=== PATIENT | male | born 1970 | race Caucasian/White ===

== ENCOUNTER 2025-01-11 02:00 | Inpatient (IN) | payer OTHER ==
[2025-01-11 02:09] VITALS: BMI 26.2
[2025-01-11] MEDS ORDERED: POLYETHYLENE GLYCOL (HEALTHYLAX) 3350 17 GM PACKET PO PRN (03:06)
[2025-01-11] MEDS ORDERED: IBUPROFEN 400 MG TABLET (FP) PO PRN (03:06)
[2025-01-11] MEDS ORDERED: ACETAMINOPHEN 325 MG TABLET (FP) PO PRN (03:06)
[2025-01-11] MEDS ORDERED: BENZONATATE 200 MG CAPSULE PO PRN (03:06)
[2025-01-11] MEDS ORDERED: guaiFENesin 600 MG TABLET.ER (FP) PO PRN (03:06)
[2025-01-11] MEDS ORDERED: MAGNESIUM HYDROX 2400MG/30ML ORAL SUSPENSION 30 ML CUP PO PRN (03:06)
[2025-01-11] MEDS ORDERED: NALOXONE (NARCAN) HCL 4 MG/0.1 ML SPRAY NS PRN (03:06)
[2025-01-11] MEDS ORDERED: P-EPHED 60MG/TRIPROLIDI 2.5MG TABLET PO PRN (03:06)
[2025-01-11] MEDS ORDERED: hydrOXYzine PAMOATE 25 MG CAPSULE (FP) PO PRN (03:06)
[2025-01-11] MEDS ORDERED: BENZOCAINE/MENTHOL (CHLORASEPTIC ) LOZENGE MM PRN (03:06)
[2025-01-11] MEDS: PRENATAL VITAMINS W/ FOLIC ACID TABLET (FP) PO SCH (10:04)
[2025-01-11] MEDS: NICOTINE 14 MG/24 HOURS TOPICAL PATCH TD SCH (10:05)
[2025-01-11] MEDS: TUBERCULIN PPD 5 TU/0.1ML SYRINGE (IN PATIENT USE ONLY) ID ONE (10:06)
[2025-01-11 11:30] LABS: MCHC 31.1 g/dl (32.3-36.5); MEAN CELL VOLUME 87.8 fl (79.0-92.2); MEAN PLT VOLUME 9.6 fl (9.4-12.4); RDW 13.4 % (12.2-16.1)
[2025-01-11 11:48] LABS: CO2 32 mmol/L (21-32); GLUCOSE,RANDOM 156 mg/dL (74-106)
[2025-01-11 11:49] LABS: SGPT/ALT 15 U/L (13-61)
[2025-01-11 11:50] LABS: SGOT/AST 17 U/L (15-37)
[2025-01-11 11:51] LABS: CREATININE 0.6 mg/dL (0.55-1.3); TOT PROT 6.6 g/dl (6.4-8.2)
[2025-01-11 11:52] LABS: ALK PHOS 93 U/L (45-117)
[2025-01-11] MEDS: DEXTROAMPHETAMINE/AMPHETAMINE 20 MG CAP.ER.24H PO SCH (12:07)
[2025-01-11 12:08] LABS: SYPHILIS W/ RPR CONF NON-REACTIVE (NONREACTIVE)
[2025-01-11 12:44] LABS: HCV DIAGNOSTIC IN-HOUSE W/RFLX REACTIVE (NONREACTIVE)
[2025-01-11] MEDS: VENLAFAXINE HCL 150 MG E.R. CAPSULE PO SCH (12:47)
[2025-01-11] MEDS: MELATONIN 5 MG TABLETS PO SCH (21:16)
[2025-01-11] MEDS: THIAMINE 100 MG TABLET PO SCH (21:16)
[2025-01-11] MEDS: NICOTINE POLACRILEX 2 MG GUM BUC PRN (22:45)
[2025-01-12] MEDS: MAG HYDROX/AL HYDROX/SIMETH 30 ML UNIT-DOSE CUP PO PRN (00:48)
[2025-01-12 02:37] LABS: URINE APPEARANCE CLEAR; URINE BILIRUBIN NEGATIVE (NEGATIVE); URINE COLOR YELLOW; URINE GLUCOSE (UA) NEGATIVE (NEGATIVE); URINE KETONE NEGATIVE (NEGATIVE); URINE LEUK ESTERASE NEGATIVE (NEGATIVE); URINE NITRITE NEGATIVE (NEGATIVE); URINE PROTEIN NEGATIVE (NEGATIVE); URINE UROBILINOGEN 1.0 mg/dL (0.2-1.0)
[2025-01-12] MEDS ORDERED: MAG HYDROX/AL HYDROX/SIMETH 30 ML UNIT-DOSE CUP PO PRN (08:17)
[2025-01-12] MEDS: IBUPROFEN 600 MG TABLET (FP) PO PRN (11:06)
[2025-01-12] MEDS ORDERED: LACTULOSE 20 GM/30 ML UDC (FOR ORAL USE ONLY) PO PRN (11:41)
[2025-01-12] MEDS: FAMOTIDINE 20 MG TABLET PO SCH (13:00)
[2025-01-12] MEDS: DOCUSATE SODIUM 100 MG CAPSULE (FP) PO SCH (21:03)
[2025-01-13] MEDS: LIDOCAINE 5% TOPICAL PATCH TP PRN (16:22)
[2025-01-13] MEDS: TRIMETHOBENZAMIDE HCL 200MG/2ML INJ IM ONE (22:32)
[2025-01-13] MEDS: LIDOCAINE PATCH REMOVAL MC SCH (23:57)
[2025-01-14] MEDS: LOPERAMIDE HCL 2 MG CAPSULE PO PRN (06:27)
[2025-01-15] MEDS: SIMETHICONE 80 MG TAB.CHEW (FP) PO PRN (09:32)
[2025-01-16 06:38] VITALS: RESP 18; TEMP 97.5
[2025-01-16] MEDS: SODIUM PHOSPHATE/NA BIPHOS 133 ML ENEMA RC ONE (17:52)
[2025-01-17 09:27] VITALS: BP 125/82; PULSE 76
== END 2025-01-17 13:28 | disposition home or self-care (01) | DRG 772 ==
LOC: EDBD 02:00 → YASAS 02:00 → Y3E 08:57
PROVIDERS: ADMIT Psychiatry & Neurology Pain Medicine; ATTEND Psychiatry & Neurology Pain Medicine
PROC: HZ42ZZZ Group Counseling for Substance Abuse Treatment, Cognitive-Behavioral (ICD-10-PCS; principal; 2025-01-11)
DX: F11.20 Opioid dependence, uncomplicated (principal); F10.20 Alcohol dependence, uncomplicated; F12.20 Cannabis dependence, uncomplicated; F14.20 Cocaine dependence, uncomplicated; K21.9 Gastro-esophageal reflux disease without esophagitis; K59.00 Constipation, unspecified; F17.210 Nicotine dependence, cigarettes, uncomplicated; M54.50 Low back pain, unspecified
CPT/HCPCS: 36415; 71046-TC-FY; 80053; 80305; 80307; 81003; 82962; 85027; 86780; 86803; 87522; 87811; 93005; 93010

== ENCOUNTER 2025-01-18 11:36 | Inpatient (IN) | payer OTHER ==
[2025-01-18 12:20] VITALS: BMI 21.7
[2025-01-18] MEDS ORDERED: NICOTINE POLACRILEX 2 MG GUM BUC PRN (12:27)
[2025-01-18] MEDS ORDERED: guaiFENesin 600 MG TABLET.ER (FP) PO PRN (12:27)
[2025-01-18] MEDS ORDERED: LOPERAMIDE HCL 2 MG CAPSULE PO PRN (12:27)
[2025-01-18] MEDS ORDERED: NALOXONE HCL 0.4 MG/ML VIAL IVPUSH PRN (12:27)
[2025-01-18] MEDS ORDERED: POLYETHYLENE GLYCOL (HEALTHYLAX) 3350 17 GM PACKET PO PRN (12:27)
[2025-01-18] MEDS ORDERED: P-EPHED 60MG/TRIPROLIDI 2.5MG TABLET PO PRN (12:27)
[2025-01-18] MEDS ORDERED: BENZOCAINE/MENTHOL (CHLORASEPTIC ) LOZENGE MM PRN (12:27)
[2025-01-18] MEDS ORDERED: NALOXONE (NARCAN) HCL 4 MG/0.1 ML SPRAY NS PRN (12:27)
[2025-01-18] MEDS ORDERED: BENZONATATE 200 MG CAPSULE PO PRN (12:27)
[2025-01-18] MEDS: MELATONIN 5 MG TABLETS PO SCH (22:18)
[2025-01-18] MEDS: THIAMINE 100 MG TABLET PO SCH (22:19)
[2025-01-19] MEDS: METHOCARBAMOL 500 MG TABLET PO PRN (09:11)
[2025-01-19] MEDS: PRENATAL VITAMINS W/ FOLIC ACID TABLET (FP) PO SCH (09:12)
[2025-01-20] MEDS: DEXTROAMPHETAMINE/AMPHETAMINE 20 MG CAP.ER.24H PO SCH (05:18)
[2025-01-20] MEDS: VENLAFAXINE HCL 150 MG E.R. CAPSULE PO SCH (10:15)
[2025-01-21] MEDS: NICOTINE POLACRILEX 2 MG LOZENGE BC PRN (09:49)
[2025-01-21] MEDS: NICOTINE 14 MG/24 HOURS TOPICAL PATCH TD SCH (12:47)
[2025-01-22] MEDS: IBUPROFEN 600 MG TABLET (FP) PO PRN (03:39)
[2025-01-22] MEDS: MAG HYDROX/AL HYDROX/SIMETH 30 ML UNIT-DOSE CUP PO PRN (14:16)
[2025-01-22] MEDS: ONDANSETRON *ODT* 4 MG TABLET SL PRN (14:27)
[2025-01-23] MEDS: MAGNESIUM HYDROX 2400MG/30ML ORAL SUSPENSION 30 ML CUP PO PRN (05:32)
[2025-01-26] MEDS: DEXTROAMPHETAMINE/AMPHETAMINE 20 MG CAP.ER.24H PO SCH (05:27)
[2025-01-26] MEDS: IBUPROFEN 400 MG TABLET (FP) PO PRN (05:29)
[2025-01-26] MEDS ORDERED: FAMOTIDINE 20 MG TABLET PO PRN (10:42)
[2025-01-26] MEDS ORDERED: DOCUSATE SODIUM 100 MG CAPSULE (FP) PO PRN (10:47)
[2025-01-26] MEDS ORDERED: SIMETHICONE 80 MG TAB.CHEW (FP) PO PRN (10:47)
[2025-01-26] MEDS ORDERED: LACTULOSE 20 GM/30 ML UDC (FOR ORAL USE ONLY) PO PRN (10:48)
[2025-01-26 11:46] VITALS: BP 115/87; PULSE 72; RESP 18; TEMP 97.6
[2025-01-26] MEDS: LIDOCAINE PATCH REMOVAL MC SCH (23:08)
[2025-01-27] MEDS ORDERED: LIDOCAINE 5% TOPICAL PATCH TP SCH (10:00)
== END 2025-01-26 23:42 | disposition short-term general hospital (02) | DRG 772 ==
LOC: YASAS 11:36 → Y3NR 15:03 → Y3W 01-19 09:39
PROVIDERS: ADMIT Neuromusculoskeletal Medicine & OMM; ATTEND Psychiatry & Neurology Pain Medicine
PROC: HZ42ZZZ Group Counseling for Substance Abuse Treatment, Cognitive-Behavioral (ICD-10-PCS; principal; 2025-01-18)
DX: F10.20 Alcohol dependence, uncomplicated (principal); F14.20 Cocaine dependence, uncomplicated; F11.20 Opioid dependence, uncomplicated; F17.210 Nicotine dependence, cigarettes, uncomplicated; F31.9 Bipolar disorder, unspecified; F43.10 Post-traumatic stress disorder, unspecified; F90.9 Attention-deficit hyperactivity disorder, unspecified type; K21.9 Gastro-esophageal reflux disease without esophagitis; R10.11 Right upper quadrant pain
CPT/HCPCS: 80305; 80307; 82962; 87811; Q0162

== ENCOUNTER 2025-01-30 00:50 | Inpatient (IN) | payer OTHER ==
[2025-01-30 01:56] LABS: ABSOLUTE IMMATURE GRANULOCYTES 0.08 x10^3/uL (0.0-0.031); BASOPHILS # 0.02 x10^3/uL (0.01-0.08); EOSINOPHIL % 1.8 % (0.8-7.0); EOSINOPHILS # 0.16 x10^3/uL (0.04-0.54); MCHC 31.5 g/dl (32.3-36.5); MEAN CELL VOLUME 83.0 fl (79.0-92.2); MEAN PLT VOLUME 8.8 fl (9.4-12.4); MONOCYTE # 0.85 x10^3/uL (0.30-0.82); MONOCYTE % 9.5 % (5.3-12.2); RDW 14.0 % (12.2-16.1)
[2025-01-30] MEDS ORDERED: ACETAMINOPHEN 1000 MG/100 ML BAG IVPB PRN (02:24)
[2025-01-30] MEDS ORDERED: PIPERACILLIN/TAZOB 3.375 GM 3.375 GM in DEXTROSE 5%-WATER - 50 ML IVPB SCH ×2 (02:30→03:00)
[2025-01-30 02:32] LABS: CO2 30.0 mmol/L (21-32); GLUCOSE,RANDOM 131.0 mg/dL (74-106)
[2025-01-30 02:35] LABS: CREATININE 0.7 mg/dL (0.55-1.3); SGOT/AST 31.0 U/L (15-37); SGPT/ALT 23.0 U/L (13-61)
[2025-01-30 02:37] LABS: TOT PROT 7.0 g/dl (6.4-8.2)
[2025-01-30 02:38] LABS: ALK PHOS 147.0 U/L (45-117)
[2025-01-30] MEDS: PIPERACILLIN/TAZOB 3.375 GM 3.375 GM in DEXTROSE 5%-WATER - 50 ML IVPB SCH ×2 (04:07→17:27)
[2025-01-30 04:43] VITALS: BMI 21.9
[2025-01-30 06:58] LABS: URINE BARBITURATES NEGATIVE (NEGATIVE)
[2025-01-30 06:59] LABS: OPIATES, URI NEGATIVE (NEGATIVE); PHENCYCLIDINE,URINE NEGATIVE (NEGATIVE); URINE BENZODIAZEPINES NEGATIVE (NEGATIVE)
[2025-01-30 07:00] LABS: COCAINE, UR POSITIVE (NEGATIVE); METHADONE, UR POSITIVE (NEGATIVE); URINE AMPHETAMINES POSITIVE (NEGATIVE)
[2025-01-30 08:04] LABS: URINE APPEARANCE CLEAR; URINE BILIRUBIN NEGATIVE (NEGATIVE); URINE COLOR YELLOW; URINE GLUCOSE (UA) NEGATIVE (NEGATIVE); URINE KETONE NEGATIVE (NEGATIVE); URINE LEUK ESTERASE NEGATIVE (NEGATIVE); URINE NITRITE NEGATIVE (NEGATIVE); URINE PROTEIN NEGATIVE (NEGATIVE); URINE UROBILINOGEN 1.0 mg/dL (0.2-1.0)
[2025-01-30 09:18] LABS: ABSOLUTE IMMATURE GRANULOCYTES 0.06 x10^3/uL (0.0-0.031); BASOPHILS # 0.01 x10^3/uL (0.01-0.08); EOSINOPHIL % 2.1 % (0.8-7.0); EOSINOPHILS # 0.17 x10^3/uL (0.04-0.54); MCHC 31.3 g/dl (32.3-36.5); MEAN CELL VOLUME 82.7 fl (79.0-92.2); MEAN PLT VOLUME 8.8 fl (9.4-12.4); MONOCYTE # 0.93 x10^3/uL (0.30-0.82); MONOCYTE % 11.7 % (5.3-12.2); RDW 13.9 % (12.2-16.1)
[2025-01-30 09:24] LABS: INR 1.2 (0.83-1.09); PROTHROMBIN TIME (PATIENT) 13.2 SEC (9.7-13.0)
[2025-01-30] MEDS: VENLAFAXINE HCL 75 MG E.R. CAPSULES PO SCH (09:25)
[2025-01-30] MEDS: FOLIC ACID 1 MG TABLET (FP) PO SCH (09:26)
[2025-01-30] MEDS: FAMOTIDINE 20 MG TABLET PO SCH (09:26)
[2025-01-30 09:58] LABS: CO2 31.0 mmol/L (21-32)
[2025-01-30 09:59] LABS: GLUCOSE,RANDOM 94.0 mg/dL (74-106)
[2025-01-30 10:00] LABS: SGPT/ALT 20.0 U/L (13-61)
[2025-01-30] MEDS ORDERED: VENLAFAXINE HCL 150 MG E.R. CAPSULE PO SCH (10:00)
[2025-01-30 10:02] LABS: CREATININE 0.6 mg/dL (0.55-1.3); SGOT/AST 20.0 U/L (15-37)
[2025-01-30 10:03] LABS: TOT PROT 6.6 g/dl (6.4-8.2)
[2025-01-30 10:04] LABS: ALK PHOS 142.0 U/L (45-117)
[2025-01-30] MEDS: BICTEGRAV/EMTRICIT/TENOFOV (BIKTARVY) 50-200-25 MG TABLET PO SCH (10:30)
[2025-01-30] MEDS: DEXTROAMPHETAMINE/AMPHETAMINE 10 MG CAP.ER.24H PO SCH ×2 (11:17→17:21)
[2025-01-31] MEDS: BICTEGRAV/EMTRICIT/TENOFOV (BIKTARVY) 50-200-25 MG TABLET PO SCH (09:02)
[2025-01-31 09:22] LABS: MCHC 30.5 g/dl (32.3-36.5); MEAN CELL VOLUME 84.7 fl (79.0-92.2); MEAN PLT VOLUME 8.5 fl (9.4-12.4); RDW 13.9 % (12.2-16.1)
[2025-01-31 09:23] LABS: INR 1.2 (0.83-1.09); PROTHROMBIN TIME (PATIENT) 13.1 SEC (9.7-13.0)
[2025-01-31 10:11] LABS: CO2 30.0 mmol/L (21-32); GLUCOSE,RANDOM 76.0 mg/dL (74-106)
[2025-01-31 10:14] LABS: CREATININE 0.5 mg/dL (0.55-1.3); SGOT/AST 14.0 U/L (15-37); SGPT/ALT 22.0 U/L (13-61)
[2025-01-31 10:16] LABS: TOT PROT 7.3 g/dl (6.4-8.2)
[2025-01-31 10:17] LABS: ALK PHOS 140.0 U/L (45-117)
[2025-01-31] MEDS: ENOXAPARIN NA (PORCINE) 40 MG/0.4 ML DISP.SYRIN SQ SCH (20:43)
[2025-02-01 09:08] LABS: INR 1.21 (0.83-1.09); PROTHROMBIN TIME (PATIENT) 13.3 SEC (9.7-13.0)
[2025-02-01 09:10] LABS: ABSOLUTE IMMATURE GRANULOCYTES 0.07 x10^3/uL (0.0-0.031); BASOPHILS # 0.01 x10^3/uL (0.01-0.08); EOSINOPHIL % 3.0 % (0.8-7.0); EOSINOPHILS # 0.17 x10^3/uL (0.04-0.54); MCHC 30.3 g/dl (32.3-36.5); MEAN CELL VOLUME 85.5 fl (79.0-92.2); MEAN PLT VOLUME 9.3 fl (9.4-12.4); MONOCYTE # 0.64 x10^3/uL (0.30-0.82); MONOCYTE % 11.2 % (5.3-12.2); RDW 14.0 % (12.2-16.1)
[2025-02-01 10:13] LABS: CO2 31.0 mmol/L (21-32); GLUCOSE,RANDOM 118.0 mg/dL (74-106)
[2025-02-01 10:15] LABS: SGOT/AST 14.0 U/L (15-37); SGPT/ALT 19.0 U/L (13-61)
[2025-02-01 10:16] LABS: CREATININE 0.6 mg/dL (0.55-1.3)
[2025-02-01 10:17] LABS: TOT PROT 6.6 g/dl (6.4-8.2)
[2025-02-01 10:18] LABS: ALK PHOS 126.0 U/L (45-117)
[2025-02-01] MEDS: POLYETHYLENE GLYCOL (HEALTHYLAX) 3350 17 GM PACKET PO SCH (12:50)
[2025-02-01] MEDS ORDERED: NICOTINE 7 MG/24 HOURS TOPICAL PATCH TD SCH (16:30)
[2025-02-01] MEDS: NICOTINE 7 MG/24 HOURS TOPICAL PATCH TD ONE (16:43)
[2025-02-01] MEDS ORDERED: ACETAMINOPHEN 325 MG TABLET (FP) PO PRN ×2 (17:52→17:53)
[2025-02-01] MEDS: ACETAMINOPHEN 500 MG TABLET (FP) PO PRN (18:49)
[2025-02-01] MEDS: TRIMETHOBENZAMIDE HCL 200MG/2ML INJ IM ONE (22:22)
[2025-02-02] MEDS: AMOX TR/POT CLAV 875MG/125MG TABLETS (FP) PO SCH (08:30)
[2025-02-02 09:02] LABS: ABSOLUTE IMMATURE GRANULOCYTES 0.11 x10^3/uL (0.0-0.031); BASOPHILS # 0.01 x10^3/uL (0.01-0.08); EOSINOPHIL % 2.1 % (0.8-7.0); EOSINOPHILS # 0.16 x10^3/uL (0.04-0.54); MCHC 30.2 g/dl (32.3-36.5); MEAN CELL VOLUME 85.4 fl (79.0-92.2); MEAN PLT VOLUME 8.9 fl (9.4-12.4); MONOCYTE # 0.67 x10^3/uL (0.30-0.82); MONOCYTE % 8.9 % (5.3-12.2); RDW 14.1 % (12.2-16.1)
[2025-02-02 09:14] LABS: INR 1.14 (0.83-1.09); PROTHROMBIN TIME (PATIENT) 12.4 SEC (9.7-13.0)
[2025-02-02 10:09] LABS: CO2 32.0 mmol/L (21-32); GLUCOSE,RANDOM 112.0 mg/dL (74-106)
[2025-02-02 10:11] LABS: SGOT/AST 21.0 U/L (15-37)
[2025-02-02 10:12] LABS: SGPT/ALT 25.0 U/L (13-61)
[2025-02-02 10:13] LABS: CREATININE 0.6 mg/dL (0.55-1.3); TOT PROT 6.9 g/dl (6.4-8.2)
[2025-02-02 10:15] LABS: ALK PHOS 129.0 U/L (45-117)
[2025-02-02] MEDS: PEG 3350/NA SULF BICARB CL/KCL 4000 ML SOLN.RECON PO ONE (12:29)
[2025-02-02] MEDS: NICOTINE 14 MG/24 HOURS TOPICAL PATCH TD SCH (12:30)
[2025-02-02] MEDS: BISACODYL 5 MG TABLET.DR (FP) PO ONE (21:17)
[2025-02-03 09:54] LABS: ABSOLUTE IMMATURE GRANULOCYTES 0.05 x10^3/uL (0.0-0.031); BASOPHILS # 0.01 x10^3/uL (0.01-0.08); EOSINOPHIL % 2.0 % (0.8-7.0); EOSINOPHILS # 0.14 x10^3/uL (0.04-0.54); MCHC 30.9 g/dl (32.3-36.5); MEAN CELL VOLUME 83.5 fl (79.0-92.2); MEAN PLT VOLUME 8.6 fl (9.4-12.4); MONOCYTE # 0.63 x10^3/uL (0.30-0.82); MONOCYTE % 9.1 % (5.3-12.2); RDW 14.0 % (12.2-16.1)
[2025-02-03 10:01] LABS: INR 1.25 (0.83-1.09); PROTHROMBIN TIME (PATIENT) 13.7 SEC (9.7-13.0)
[2025-02-03 10:53] LABS: CO2 34.0 mmol/L (21-32); GLUCOSE,RANDOM 80.0 mg/dL (74-106)
[2025-02-03 10:56] LABS: CREATININE 0.5 mg/dL (0.55-1.3); SGOT/AST 19.0 U/L (15-37); SGPT/ALT 25.0 U/L (13-61)
[2025-02-03 10:57] LABS: TOT PROT 6.8 g/dl (6.4-8.2)
[2025-02-03 10:59] LABS: ALK PHOS 121.0 U/L (45-117)
[2025-02-03 13:38] VITALS: TEMP 98
[2025-02-03 16:19] VITALS: RESP 12
[2025-02-03 16:22] VITALS: BP 121/71; PULSE 64
[2025-02-03] MEDS ORDERED: DEXTROAMPHETAMINE/AMPHETAMINE 10 MG CAP.ER.24H PO SCH (17:15)
[2025-02-03] MEDS: DEXTROAMPHETAMINE/AMPHETAMINE 10 MG CAP.ER.24H PO ONE (18:00)
== END 2025-02-03 18:46 | disposition other institution (70) | DRG 253 ==
LOC: JER 00:50 → JERBED 01:50 → J6S 02:43
PROVIDERS: ADMIT Internal Medicine; ATTEND Internal Medicine
PROC: 0DB68ZX Excision of Stomach, Via Natural or Artificial Opening Endoscopic, Diagnostic (ICD-10-PCS; 2025-02-03)
PROC: 0DJD8ZZ Inspection of Lower Intestinal Tract, Via Natural or Artificial Opening Endoscopic (ICD-10-PCS; 2025-02-03)
PROC: 0DB98ZX Excision of Duodenum, Via Natural or Artificial Opening Endoscopic, Diagnostic (ICD-10-PCS; principal; 2025-02-03 16:45)
DX: K66.1 Hemoperitoneum (principal); K76.7 Hepatorenal syndrome; K68.3 Retroperitoneal hematoma; K75.0 Abscess of liver; K86.89 Other specified diseases of pancreas; F11.10 Opioid abuse, uncomplicated; F14.10 Cocaine abuse, uncomplicated; R91.1 Solitary pulmonary nodule; S36.112A Contusion of liver, initial encounter; K74.60 Unspecified cirrhosis of liver; D64.9 Anemia, unspecified; F31.9 Bipolar disorder, unspecified; F90.9 Attention-deficit hyperactivity disorder, unspecified type; F43.10 Post-traumatic stress disorder, unspecified; K29.70 Gastritis, unspecified, without bleeding; Z21 Asymptomatic human immunodeficiency virus [HIV] infection status; S22.41XD Multiple fractures of ribs, right side, subsequent encounter for fracture with routine healing; V89.2XXD Person injured in unspecified motor-vehicle accident, traffic, subsequent encounter
CPT/HCPCS: 36415; 73590-TC-RT-FY; 74177-TC; 74183-TC; 80053; 80307; 81003; 82105; 82248; 82378; 82977; 83690; 83735; 84100; 85025; 85027; 85610; 85651; 86140; 86301; 86850; 86900; 86901; 87522; 88305-TC; 88342-TC; 93005; 93010; 99285-25